=== PATIENT | male | born 1980 | race Caucasian/White ===

== ENCOUNTER 2022-12-17 10:20 | Emergency (ER) | payer SELFPAY ==
[2022-12-17] MEDS ORDERED: NA CHLORIDE 0.9% 2,000 ML ONE (10:51)
[2022-12-17] MEDS ORDERED: LORazepam 2 MG/ML VIAL ONE (10:53)
[2022-12-17 11:04] LABS: Absolute Lymphocytes (CBC) 1.4 K/uL (0.7-4.9); Hematocrit 44.2 % (39.6-49.0); Lymphocytes % 15.2 % (15.3-44.8); MCV 84.4 fL (80-100); RBC Red Blood Cell Count 5.24 M/uL (4.33-5.43)
--- NOTE | 2022-12-17 11:15 | RAD REPORT ---
EXAM DESCRIPTION: RAD - Chest Single View - 12/17/2022 11:06 am CLINICAL HISTORY: CHEST PAIN COMPARISON: No comparisons FINDINGS: Lines: None. Lungs: No evidence of edema or pneumonia. Pleural: No significant pleural effusions or pneumothorax. Cardiac: The heart size is within normal limits. Mediastinum: Within normal limits. Bones: No acute fractures. Other: None IMPRESSION: No acute cardiopulmonary disease.
[2022-12-17 11:28] LABS: ALT/SGPT 27 U/L (16-61); AST/SGOT 16 U/L (15-37); Alkaline Phosphatase 75 U/L (45-117); BUN Blood Urea Nitrogen 16 mg/dL (7-18); Bicarbonate 24 mEq/L (21-32); Bilirubin Total 0.5 mg/dL (0.2-1.0); Glomerular Filtration Rate 86 ml/min (=/>90); Glucose Level 109 mg/dL (74-106); Potassium 3.9 mEq/L (3.5-5.1); Sodium Level 139 mEq/L (136-145)
[2022-12-17 11:29] LABS: Albumin 3.7 g/dL (3.4-5.0); Creatine Phosphokinase 155 U/L (39-308); Lipase 15 U/L (13-75); Troponin High Sensitivity 4.5 pg/mL (<58.9)
--- NOTE | 2022-12-17 11:56 | RAD REPORT ---
EXAM DESCRIPTION: CTAngio Aorta For Dissection - 12/17/2022 11:46 am CLINICAL HISTORY: chest, abdomen pain COMPARISON: No comparisons TECHNIQUE: CTA of the chest, abdomen, and pelvis was performed. MIPs were created of the aorta. All CT scans are performed using dose optimization technique as appropriate and may include automated exposure control or mA/KV adjustment according to patient size. FINDINGS: Thorax: Chest Wall: No abnormal mass Lungs: No acute abnormality. Pleura: No effusions or pneumothorax. Araceli/Mediastinum: No lymphadenopathy. Aorta/Pulmonary Arteries: Unremarkable Heart: Normal size. Abdomen/Pelvis: Liver: No acute abnormality or suspicious lesions. Biliary: No biliary ductal dilatation. Stomach: No significant focal abnormality. Duodenum: No significant focal abnormality. Pancreas: No significant abnormality. Spleen: No significant abnormality. Adrenal: No suspicious lesions. Kidney/ureter: No hydronephrosis. No renal calculi. Retroperitoneum: No retroperitoneal adenopathy. Vascular: No aneurysm. Bowel: No significant focal abnormality. Normal appendix . Peritoneum: No ascites or free air. Bladder: Grossly unremarkable. Reproductive: No adnexal masses. Bones: No acute fracture. Other: n/a IMPRESSION: No evidence of aortic aneurysm or aortic dissection. No acute findings present within th e chest, abdomen, or pelvis.
[2022-12-17 12:47] LABS: Specific Gravity > 1.030 (1.005-1.030); Urine Bacteria None Seen /HPF (<20); Urine Bilirubin NEGATIVE (Negative); Urine Blood Negative (Negative); Urine Clarity Clear (Clear); Urine Color Yellow (Yellow); Urine Glucose NEGATIVE (Negative); Urine Mucus Slight /HPF (None Seen); Urine Protein TRACE (Negative); Urine RBC <5 /HPF (None Seen); Urine Urobilinogen Normal (Normal); Urine pH 6.5 (5.0-7.0)
--- NOTE | 2022-12-17 13:56 | ER ---
Nurse's Notes [facility] Name: Roby Renteria Age: 42 yrs Sex: Male : 1980 Arrival Date: 12/17/2022 Time: 10:20 Bed 13 Private MD: Diagnosis: Chest pain, unspecified Presentation: 12/17 10:28 Chief complaint: EMS states: chest pain, left arm, and left flank pain started 30 eh3 minutes ago. PD traffic stop about an hour ago and pain started after that, also c/o right wrist pain from handcuffs. Ebola Screen: No symptoms or risks identified at this time. Initial Sepsis Screen: Does the patient meet any 2 criteria? No. Patient's initial sepsis screen is negative. Does the patient have a suspected source of infection? No. Patient's initial sepsis screen is negative. Risk Assessment: Do you want to hurt yourself or someone else? Patient reports no desire to harm self or others. Onset of symptoms was December 17, 2022. 10:28 Method Of Arrival: EMS: [facility] 3 10:28 Acuity: FREDI 2 eh3 10:28 Coronavirus screen: Vaccine status: Patient reports being unvaccinated. eh3 Triage Assessment: 10:30 General: Appears distressed, uncomfortable, Behavior is agitated, restless. Pain: eh3 Complains of pain in chest, left arm and left flank. Pain: Pain currently is 10 out of 10 on a pain scale. Quality of pain is described as sharp, Pain began 30 min ago. Is continuous, Noted to be agitated, moaning, resistant to movement. Neuro: Level of Consciousness is awake, alert, obeys commands, Oriented to person, place, time, situation. Cardiovascular: Capillary refill < 3 seconds Patient's skin is warm and dry. Respiratory: Airway is patent Respiratory effort is even, unlabored, Respiratory pattern is regular, symmetrical. GI: Abdomen is round non-distended. Historical: - Allergies: 10:30 No Known Allergies; eh3 - Immunization history:: Adult Immunizations unknown. - Social history:: Smoking status: unknown. - Family history:: not pertinent. Screenin:34 [facility] ED Fall Risk Assessment (Adult) Score/Fall Risk Level 0 - 2 = Low Risk. Abuse eh3 screen: Denies threats or abuse. Denies injuries from another. Nutritional screening: No deficits noted. Tuberculosis screening: No symptoms or risk factors identified. Assessment: 10:34 Reassessment: No changes from previously documented assessment. See triage assessment. 3 Pain: Complains of pain in chest Pain radiates to left arm Pain currently is 10 out of 10 on a pain scale. Quality of pain is described as sharp, Pain began suddenly, 30 min ago. Is continuous. 11:30 Reassessment: Patient appears in no apparent distress at this time. Patient and/or eh3 family updated on plan of care and expected duration. Pain level reassessed. Patient is alert, oriented x 3, equal unlabored respirations, skin warm/dry/pink. Pain: Denies pain. 12:30 Reassessment: Patient appears in no apparent distress at this time. Patient and/or eh3 family updated on plan of care and expected duration. Pain level reassessed. Patient is alert, oriented x 3, equal unlabored respirations, skin warm/dry/pink. 13:30 Reassessment: Patient appears in no apparent distress at this time. Patient and/or eh3 family updated on plan of care and expected duration. Pain level reassessed. Patient is alert, oriented x 3, equal unlabored respirations, skin warm/dry/pink. Vital Signs: 10:28 BP 103 / 65; Pulse 127; Resp 20; Temp 98.8(IR); Pulse Ox 97% on R/A; Weight 95.25 kg; eh3 Height 6 ft. 2 in. ; Pain 10/10; 11:30 Pulse 94; Resp 18; Pulse Ox 97% on R/A; eh3 12:30 BP 112 / 75; Pulse 98; Resp 19; Pulse Ox 100% on R/A; eh3 10:28 Body Mass Index 26.96 (95.25 kg, 187.96 cm) 3 10:28 Pain Scale: Adult [facility] ED Course: 10:23 Patient arrived in ED. eb 10:24 Waylon Joseph MD is Attending Physician. rt 10:27 Aranza Buckner, ZORA is Primary Nurse. 3 10:30 Triage completed. 3 10:30 Arm band placed on. 3 10:34 Patient has correct armband on for positive identification. Bed in low position. Call [facility] light in reach. Side rails up X2. Client placed on continuous cardiac and pulse oximetry monitoring. NIBP monitoring applied. 10:34 Patient maintains SpO2 saturation greater than 95% on room air. eh3 10:45 Missed attempt(s): 20 gauge in right forearm. Bleeding controlled, band aid applied, eh3 catheter tip intact. 10:55 Inserted saline lock: 20 gauge in right antecubital area, using aseptic technique. eh3 Blood collected. 11:08 Chest Single View XRAY In Process Unspecified. EDMS 11:47 Angio Aorta For Dissection In Process Unspecified. EDMS 12:33 UAM Sent. eh3 14:04 No provider procedures requiring assistance completed. IV discontinued, intact, mb9 bleeding controlled, No redness/swelling at site. Pressure dressing applied. Administered Medications: 10:55 Drug: Ativan IVP 2 mg Route: IVP; Site: right antecubital; eh3 11:30 Follow up: Response: Pain is decreased; Anxiety decreased eh3 10:55 Drug: NS 0.9% IV 2000 ml Route: IV; Rate: 1 bolus; Site: right antecubital; 3 13:00 Follow up: IV Status: Completed infusion; IV Intake: 2000ml 3 Medication: 14:00 VIS not applicable for this client. eh3 Intake: 13:00 IV: 2000ml; Total: 2000ml. 3 Outcome: 13:56 Discharge ordered by . rt 14:04 Discharged to home mb9 14:04 Condition: stable 14:04 Discharge instructions given to patient, Instructed on discharge instructions, follow up and referral plans. Demonstrated understanding of instructions, follow-up care. 14:04 Patient left the ED. mb9 Signatures: Dispatcher [employer] EDHI Alessandra Bryant Erin, RN RN 3 Maxine Ken RN RN mb9 Waylon Joseph MD MD rt Corrections: (The following items were deleted from the chart) 12:35 10:34 Pain: Complains of pain in chest Pain radiates to left arm 3 3 13:01 10:28 Pulse 127bpm; Resp 20bpm; Pulse Ox 97% RA; Temp 98.8F Infrared; 95.25 kg; Height eh3 6 ft. 2 in.; BMI: 26.9; Pain 10, Adult; 3 13:05 12:30 Pulse 98bpm; Resp 19bpm; Pulse Ox 100% RA; eh3 eh3 13:06 13:00 Reassessment: 3 3
--- NOTE | 2022-12-17 13:56 | EDPHYS ---
Physician Documentation [facility] Name: Roby Renteria Age: 42 yrs Sex: Male : 1980 Arrival Date: 12/17/2022 Time: 10:20 Bed 13 Private MD: ED Physician Waylon Joseph HPI: 12/17 10:34 This 42 yrs old Male presents to ER via EMS with complaints of Chest Pain. rt 10:34 Presents to the ED in Law enforcement custody for chest pain, pain to the left side. rt The patient was reportedly arrested about an hour ago and was acting normally, had acute onset of a left-sided pain. Patient states that the pain is been present for several days, states that he has difficulty urinating. Law enforcement states that they found methamphetamine paraphernalia but no bags, states that they are concerned that the patient may have swallowed a bag. The patient denies other acute complaints at this time, other aggravating or alleviating factors.. Historical: - Allergies: 10:30 No Known Allergies; eh3 - Immunization history:: Adult Immunizations unknown. - Social history:: Smoking status: unknown. - Family history:: not pertinent. ROS: 10:34 Constitutional: Negative for fever, chills, and weight loss, Respiratory: Negative for rt shortness of breath, cough, wheezing, and pleuritic chest pain, MS/Extremity: Negative for injury and deformity, Skin: Negative for injury, rash, and discoloration, Neuro: Negative for headache, weakness, numbness, tingling, and seizure, Psych: Negative for depression, anxiety, suicide ideation, homicidal ideation, and hallucinations. 10:34 Cardiovascular: Positive for chest pain, Negative for edema. 10:34 Abdomen/GI: Positive for abdominal pain, nausea. Exam: 10:34 Chest/axilla: Normal chest wall appearance and motion. Nontender with no deformity. rt No lesions are appreciated. Cardiovascular: Regular rate and rhythm with a normal S1 and S2. No gallops, murmurs, or rubs. Normal PMI, no JVD. No pulse deficits. Respiratory: Lungs have equal breath sounds bilaterally, clear to auscultation and percussion. No rales, rhonchi or wheezes noted. No increased work of breathing, no retractions or nasal flaring. Abdomen/GI: Soft, non-tender, with normal bowel sounds. No distension or tympany. No guarding or rebound. No evidence of tenderness throughout. Skin: Warm, dry with normal turgor. Normal color with no rashes, no lesions, and no evidence of cellulitis. MS/ Extremity: Pulses equal, no cyanosis. Neurovascular intact. Full, normal range of motion. Neuro: Awake and alert, GCS 15, oriented to person, place, time, and situation. Cranial nerves II-XII grossly intact. Motor strength 5/5 in all extremities. Sensory grossly intact. Cerebellar exam normal. Normal gait. Psych: Awake, alert, with orientation to person, place and time. Behavior, mood, and affect are within normal limits. 10:34 Constitutional: The patient appears listless, in obvious distress. 10:51 ECG was reviewed by the Attending Physician. rt Vital Signs: 10:28 BP 103 / 65; Pulse 127; Resp 20; Temp 98.8(IR); Pulse Ox 97% on R/A; Weight 95.25 kg; eh3 Height 6 ft. 2 in. ; Pain 10/10; 11:30 Pulse 94; Resp 18; Pulse Ox 97% on R/A; eh3 12:30 BP 112 / 75; Pulse 98; Resp 19; Pulse Ox 100% on R/A; eh3 10:28 Body Mass Index 26.96 (95.25 kg, 187.96 cm) eh3 10:28 Pain Scale: Adult eh3 MDM: 10:28 Patient medically screened. rt 13:58 Differential diagnosis: [place], aortic dissection, ureteral colic, pyelonephritis, rt sympathomimetic toxidrome. HEART Score: History: Slightly Suspicious (0), ECG: Normal (0), Age: < or = 45 years (0), Risk Factors: 1 or 2 risk factors (1), Troponin: < or = 1 x Normal Limit (0), Total Score = 1. Data reviewed: vital signs, nurses notes, lab test result(s), EKG, radiologic studies. Consideration of Admission/Observation Escalation of care including admission/observation considered. I considered the following discharge prescriptions or medication management in the emergency department Medications were administered in the Emergency Department. See MAR. Counseling: I had a detailed discussion with the patient and/or guardian regarding: the historical points, exam findings, and any diagnostic results supporting the discharge/admit diagnosis, lab results, radiology results, the need for outpatient follow up. 13:59 ED course: Tachycardia and symptoms are improving with Ativan administration and rt fluids. The patient has no acute ischemic changes on the EKG, troponins are negative x2. No evidence of aortic dissection, urinalysis is unremarkable, no evidence of kidney stone. The rest of the work-up is benign, stable for outpatient care, return precautions discussed. 12/17 10:28 Order name: CBC with Diff; Complete Time: 11:18 rt 12/17 10:28 Order name: CMP; Complete Time: 12:01 rt 12/17 10:28 Order name: Troponin High Sensitivity; Complete Time: 12:01 rt 12/17 10:28 Order name: CPK; Complete Time: 12:01 rt 12/17 10:28 Order name: Magnesium; Complete Time: 12:01 rt 12/17 10:28 Order name: UDS rt 12/17 10:28 Order name: Acetaminophen; Complete Time: 12:01 rt 12/17 10:28 Order name: Salicylate; Complete Time: 12:18 rt 12/17 10:28 Order name: Alcohol Level; Complete Time: 11:35 rt 12/17 10:28 Order name: UAM; Complete Time: 13:18 rt 12/17 10:28 Order name: Lipase; Complete Time: 12:01 rt 12/17 13:27 Order name: Troponin High Sensitivity; Complete Time: 13:55 rt 12/17 10:28 Order name: Chest Single View XRAY; Complete Time: 11:18 rt 12/17 11:22 Order name: Angio Aorta For Dissection; Complete Time: 12:01 EDMS 12/17 10:28 Order name: EKG; Complete Time: 10:29 rt 12/17 10:28 Order name: EKG - Nurse/Tech; Complete Time: 10:36 rt EC:51 Rate is 116 beats/min. Rhythm is regular, Sinus tachycardia with No ectopy. QRS [place] is rt Normal. SD interval is normal. QRS interval is normal. QT interval is normal. No Q waves. T waves are Normal. No ST changes noted. Interpreted by me. Administered Medications: 10:55 Drug: Ativan IVP 2 mg Route: IVP; Site: right antecubital; eh3 11:30 Follow up: Response: Pain is decreased; Anxiety decreased eh3 10:55 Drug: NS 0.9% IV 2000 ml Route: IV; Rate: 1 bolus; Site: right antecubital; 3 13:00 Follow up: IV Status: Completed infusion; IV Intake: 2000ml [facility] Disposition Summary: 12/17/22 13:56 Discharge Ordered Problem: new rt Symptoms: are resolved rt Condition: Stable rt Location: Law Enforcement(12/17/22 13:59) rt Diagnosis - Chest pain, unspecified rt Followup: rt - With: Private Physician - When: 2 - 3 days - Reason: Discharge Instructions: - Discharge Summary Sheet rt - Nonspecific Chest Pain, Adult rt Forms: - Medication Reconciliation Form rt - Thank You Letter rt - Antibiotic Education rt - Prescription Opioid Use rt Signatures: Dispatcher [employer] Aranza Krishnamurthy RN RN 3 Waylon Joseph MD MD rt Corrections: (The following items were deleted from the chart) 13:59 13:56 Home rt rt
[2022-12-17 14:18] VITALS: TEMP 98.8
[2022-12-17 14:29] VITALS: BP 112/75; O2SAT 100
[2022-12-17 15:52] LABS: Barbiturates NEGATIVE (NEGATIVE); Benzodiazepines NEGATIVE (NEGATIVE); Cocaine NEGATIVE (NEGATIVE); METHAMPHETAM POSITIVE (NEGATIVE); Methadone NEGATIVE (NEGATIVE); Opiates NEGATIVE (NEGATIVE); Phencyclidine NEGATIVE (NEGATIVE); THC Cannibis NEGATIVE (NEGATIVE)
--- NOTE | 2022-12-20 11:47 | EKG ---
Test Date: 2022-12-17 Test Time: 10:39:39 Jacker: EVANS MEASUREMENT RESULTS: Intervals: Rate: 116 DC: 146 QRSD: 98 QT: 328 QTc: 455 [place]: P: 75 DC: 146 QRS: 90 T: 59 INTERPRETIVE STATEMENTS: Sinus tachycardia Otherwise normal ECG No previous ECG available for comparison Electronically Signed On 12-20-22 11:41:57 CDT by Isaac Michelle
== END 2022-12-17 14:04 ==
LOC: ER 10:20
DX: R07.89 Other chest pain (principal)
CPT/HCPCS: 36415; 71045; 71275; 74175; 80053; 80307; 81001; 82550; 83690; 83735; 84484; 85025; 93005; 96361; 96374; 99285; G0480; J7030; Q9967